=== PATIENT | male | born 1970 | race Two or more races ===

== ENCOUNTER 2017-03-28 17:53 | Emergency (ER) | payer BC ==
[~2017-03-28] VITALS: Ht 177.8 cm; Wt 100.2 kg
[2017-03-28 17:56] VITALS: BP 184/96
[2017-03-28 18:34] LABS: HEMATOCRIT 49.1 % (39.2-51.8); WHITE BLOOD COUNT 9.6 x10^3/uL (3.4-10)
[2017-03-28 19:10] LABS: PATH.CAST-FLAG NOT PRESENT; SPERM-FLAG NOT PRESENT; SRC-FLAG NOT PRESENT; XTAL-FLAG NOT PRESENT; YLC-FLAG NOT PRESENT
[2017-03-28 19:43] LABS: ASPARTATE AMINO TRANSFERASE 40 U/L (15-37); BLOOD UREA NITROGEN 15 mg/dL (7-18)
== END 2017-03-28 20:29 | disposition home or self-care (01) ==
LOC: ED 20:00
DX: R31.0 Gross hematuria (principal)
CPT/HCPCS: 36415; 80053; 81001; 85025; 85610; 85730; 99284

== ENCOUNTER → 2017-05-08 | Outpatient (CLI) | payer BC ==
[~2017-05-08] MED LIST: OMNIPAQUE 350 MG/ML, 150 ML BOTTLE ONE
== END | disposition home or self-care (01) ==
LOC: CFH 08:39
PROVIDERS: ATTEND Urology
DX: K80.20 Calculus of gallbladder without cholecystitis without obstruction (principal); K76.0 Fatty (change of) liver, not elsewhere classified; R59.0 Localized enlarged lymph nodes; M51.37 Other intervertebral disc degeneration, lumbosacral region
CPT/HCPCS: 74178; Q9967

== ENCOUNTER 2017-05-17 10:39 | Emergency (ER) | payer BC ==
[~2017-05-17] VITALS: Ht 177.8 cm; Wt 95.7 kg
[2017-05-17] MEDS ORDERED: ONDANSETRON 2MG/ML, 2ML IVPush ONE (11:30)
[2017-05-17] MEDS ORDERED: SODIUM CHLORIDE FLUSH 10ML SYR IVF ONE (11:30)
[2017-05-17] MEDS ORDERED: MECLIZINE CHEWABLE 25 MG TAB PO ONE (11:30)
[2017-05-17] MEDS ORDERED: SODIUM CHLORIDE 0.9% 1,000ML IVBOLUS ONE (11:30)
[2017-05-17 11:57] LABS: BLOOD UREA NITROGEN 18 mg/dL (7-18)
[2017-05-17 11:58] LABS: HEMATOCRIT 47.6 % (39.2-51.8); HEMOGLOBIN 16.5 g/dL (13.7-18.0); WHITE BLOOD COUNT 12.2 x10^3/uL (3.4-10)
[2017-05-17 13:11] VITALS: BP 182/101
== END 2017-05-17 13:13 | disposition home or self-care (01) ==
LOC: ED 12:14
DX: H81.12 Benign paroxysmal vertigo, left ear (principal); I10 Essential (primary) hypertension
CPT/HCPCS: 36415; 70450; 80048; 82040; 85025; 93005; 96361; 96374; 99285; J2405; J7030